=== PATIENT | female | born 1930 | race Caucasian/White ===

== ENCOUNTER 2016-09-07 10:59 | Inpatient (IN) | payer OTHER, BC ==
[~2016-09-07] VITALS: Ht 167.6 cm; Wt 94.3 kg
[~2016-09-07 10:59] MED LIST: ALEVE220 MG PO; AMLODIPINE-BEN1 EAC3 PO; ASCORBIC ACID500 M3 PO; ASPIRIN325 MG PO; BACTRIM,SEPT1 TABLET PO; BENAZEPRIL HCL5 MG PO; Benadryl PO; Coumadin Protocol PO; DAILY MULTIPLE1 EACH PO; FISH OIL 1,2001 EAC3 PO; FLOVENT 11120 INHALA IH; Feosol PO; GLIMEPIRIDE1 MG PO; GLUCOPHAGE XR750 MG PO; GLUCOSAMINE-CH1 EA12 PO; Glucophage PO; HYDROCHLOROTH12.5 M3 PO; HYDROCODON-ACE1 EAC7 PO; IRON325 MG PO; LOTREL 5/201 CAPSULE PO; Lotrel 5/20 PO; NORVASC2.5 MG PO; PEPTO BISMOL262 MG PO; PEPTO-BISM525 MG/15 PO; TYLENOL EXTRA500 MG PO; VITAMIN D31000 UNIT PO; Vicodin,Norco 5/325 PO; celeBREX PO
[2016-09-26] MEDS ORDERED: BACTROBAN NASAL1 G1 BOTH NARES (14:13)
[2016-09-26] MEDS ORDERED: TYLENOL WITH C1 EACH PO (14:17)
[2016-09-26] MEDS ORDERED: TYLENOL EXTRA500 MG PO (14:17)
[2016-09-26] MEDS ORDERED: TOPROL XL50 MG PO (14:19)
[2016-09-26] MEDS ORDERED: CORTIZONE-1028 GM TP (14:19)
[2016-09-27 10:57] VITALS: BP 146/71
[2016-09-27 11:37] LABS: POINT-OF-CARE METER ID UU13113694
[2016-09-27 12:20] LABS: METH RESISTANT S AUREUS PCR NEGATIVE (NEGATIVE)
[2016-09-27 12:27] LABS: PROBE CHECK PASS; SPECIMEN PROCESSING CONTROL PASS
[2016-09-27 16:49] VITALS: BP 147/85
[2016-09-27 16:50] LABS: POINT-OF-CARE METER ID UU13113675
[2016-09-27 19:05] VITALS: BP 136/98
[2016-09-27 23:05] VITALS: BP 149/72
[2016-09-28 02:35] VITALS: BP 131/75
[2016-09-28 05:28] LABS: MCV 93.8 FL (83-99)
[2016-09-28 08:52] VITALS: BP 137/69
[2016-09-28 15:53] VITALS: BP 152/83
[2016-09-28 19:47] VITALS: BP 145/83
[2016-09-29 00:27] VITALS: BP 137/79
[2016-09-29 08:22] LABS: HEMATOCRIT 31.2 % (36.0-46.0); MCV 94.5 FL (83-99)
[2016-09-29 08:38] VITALS: BP 135/78
[2016-09-29 12:41] VITALS: BP 131/77
[2016-09-29 16:17] VITALS: BP 171/74
[2016-09-30 00:42] VITALS: BP 158/73
[2016-09-30 23:42] VITALS: BP 129/60
[2016-10-01 08:06] VITALS: BP 140/69
[2016-10-01] MEDS ORDERED: ASPIRIN EC325 MG PO (08:25)
[2016-10-01] MEDS ORDERED: OXYCODONE HCL5 MG PO (08:26)
[2016-10-01] MEDS ORDERED: DOCUSATE SODIU100 MG PO (08:26)
== END 2016-10-01 10:05 | DRG 483 ==
LOC: 2SOUTH → ENRESERV 09-26 22:02 → 2SOUTH 09-27 09:46 → 3EAST 09-27 10:16 → 2SOUTH 09-27 11:42 → ENRESERV 09-27 14:51 → 3EAST 09-27 16:38
PROVIDERS: Orthopaedic Surgery
PROC: 0RRJ00Z Replacement of Right Shoulder Joint with Reverse Ball and Socket Synthetic Substitute, Open Approach (ICD-10-PCS; principal; 2016-09-27)
DX: M19.011 Primary osteoarthritis, right shoulder (principal); N18.9 Chronic kidney disease, unspecified; E11.22 Type 2 diabetes mellitus with diabetic chronic kidney disease; I12.9 Hypertensive chronic kidney disease with stage 1 through stage 4 chronic kidney disease, or unspecified chronic kidney disease; E78.5 Hyperlipidemia, unspecified; J45.909 Unspecified asthma, uncomplicated; Z96.612 Presence of left artificial shoulder joint; Z96.643 Presence of artificial hip joint, bilateral; Z96.653 Presence of artificial knee joint, bilateral; Z68.33 Body mass index [BMI] 33.0-33.9, adult
CPT/HCPCS: 71010; 82948; 85014; 85018; 87641; 94010; 94640; 94640 76; 94799; 97530 GP; C1713; J0330; J2250; J2405; J2795; J3010; J3370; J7030; J7050

== ENCOUNTER 2017-03-31 05:08 | Emergency (ER) | payer OTHER, BC ==
[~2017-03-31] VITALS: Ht 170.2 cm; Wt 97.4 kg
[~2017-03-31 05:08] MED LIST changes: +ASPIRIN EC325 MG PO; +BACTROBAN NASAL1 G1 BOTH NARES; +CORTIZONE-1028 GM TP; +DOCUSATE SODIU100 MG PO; +OXYCODONE HCL5 MG PO; +TOPROL XL50 MG PO; +TYLENOL WITH C1 EACH PO
[2017-03-31 07:00] VITALS: BP 123/62
== END 2017-03-31 07:01 | disposition home or self-care (01) ==
LOC: EME → EDBD 05:08 → EME 05:08
DX: S32.501A Unspecified fracture of right pubis, initial encounter for closed fracture (principal); N18.9 Chronic kidney disease, unspecified; E11.9 Type 2 diabetes mellitus without complications; W18.30XA Fall on same level, unspecified, initial encounter; Z87.891 Personal history of nicotine dependence; Z79.84 Long term (current) use of oral hypoglycemic drugs; Z96.651 Presence of right artificial knee joint; Z96.643 Presence of artificial hip joint, bilateral; Z96.612 Presence of left artificial shoulder joint; Z96.611 Presence of right artificial shoulder joint; Z85.9 Personal history of malignant neoplasm, unspecified; Z88.0 Allergy status to penicillin; Z88.8 Allergy status to other drugs, medicaments and biological substances
CPT/HCPCS: 72220; 73502; 80053; 81003; 85025; 99281; 99284

== ENCOUNTER 2017-04-08 15:42 | Inpatient (IN) | payer OTHER, BC ==
[~2017-04-08] VITALS: Ht 170.2 cm; Wt 96.6 kg
[2017-04-08 16:03] LABS: HEMATOCRIT 36.2 % (36.0-46.0); HEMOGLOBIN 11.8 G/DL (11.9-15.5); MCH 30.5 PG (29.0-34.0); MCHC 32.6 G/DL (30.0-36.0); MCV 93.5 FL (83-99); PLATELET COUNT 199 K/uL (156-360); RBC DIS.WIDTH-CV 15.7 % (11.8-14.6); RBC DIS.WIDTH-SD 53.5 % (39-53); RED BLOOD COUNT 3.87 M/uL (3.80-5.20); WHITE BLOOD COUNT 10.8 K/uL (4.1-10.2)
[2017-04-08 16:20] LABS: ALBUMIN 3.8 g/dL (3.2-4.8); CHLORIDE 108 mEq/L (99-109); POTASSIUM 4.1 mEq/L (3.7-5.4); SODIUM 143 mEq/L (136-147)
[2017-04-08 16:22] LABS: GLUCOSE 101 mg/dL (70-99); TOTAL PROTEIN 6.4 g/dL (6.4-8.3)
[2017-04-08 16:24] LABS: TOTAL BILIRUBIN 0.4 mg/dL (0.0-1.0)
[2017-04-08 16:26] LABS: ALKALINE PHOSPHATASE 91 IU/L (3-129); CREATININE 0.9 mg/dL (0.6-1.3); GFR ESTIMATE (CALCULATED) > 59 mL/min/
[2017-04-08 16:27] LABS: AST (GOT) 18 IU/L (2-34); UREA NITROGEN (BUN) 23 mg/dL (9-23)
[2017-04-08 16:29] LABS: ALT (GPT) 19 IU/L (3-49)
[2017-04-08] MEDS ORDERED: CODEINE-GUAIFE120 ML PO (20:04)
[2017-04-08] MEDS ORDERED: PROAIR HFA8.5 GM IH (20:04)
[2017-04-08] MEDS ORDERED: TYLENOL EXTRA500 MG PO (20:06)
[2017-04-08] MEDS ORDERED: KENALOG,ARISTOC80 GM TP (20:07)
[2017-04-08] MEDS ORDERED: LASIX40 MG PO (20:07)
[2017-04-08 21:31] LABS: TROP-I INTERPRETATION NEGATIVE; TROPONIN-I < 0.01 ng/mL (0.0-0.30)
[2017-04-08 23:12] VITALS: BP 143/62
[2017-04-09 03:58] VITALS: BP 151/65
[2017-04-09 05:58] LABS: HEMOGLOBIN 10.7 G/DL (11.9-15.5); RED BLOOD COUNT 3.67 M/uL (3.80-5.20); WHITE BLOOD COUNT 8.9 K/uL (4.1-10.2)
[2017-04-09 05:59] LABS: BASOPHIL (%) 0.8 % (0-1); BASOPHIL COUNT 0.1 K/uL (0-0.1); EOSINOPHIL (%) 4.9 % (0-5); EOSINOPHIL COUNT 0.4 K/uL (0-0.3); HEMATOCRIT 34.2 % (36.0-46.0); IMMATURE GRANULOCYTE (%) 0.3 % (0.0-0.7); LYMPHOCYTE COUNT 1.4 K/uL (1.0-2.8); MCH 29.2 PG (29.0-34.0); MCHC 31.3 G/DL (30.0-36.0); MCV 93.2 FL (83-99); MONOCYTE (%) 7.9 % (3-12); MONOCYTE COUNT 0.7 K/uL (0-0.8); NEUTROPHIL (%) 70.1 % (45-76); NEUTROPHIL COUNT 6.2 K/uL (1.8-6.4); PLATELET COUNT 177 K/uL (156-360); RBC DIS.WIDTH-CV 15.4 % (11.8-14.6); RBC DIS.WIDTH-SD 52.9 % (39-53)
[2017-04-09 06:22] LABS: CHLORIDE 110 MEQ/L (99-109); CREATININE 0.9 MG/DL (0.6-1.3); GFR ESTIMATE (CALCULATED) > 59 mL/min/; POTASSIUM 4.2 MEQ/L (3.7-5.4); SODIUM 145 MEQ/L (136-147); UREA NITROGEN (BUN) 20 mg/dL (9-23)
[2017-04-09 06:36] LABS: GLUCOSE 153 mg/dL (70-99)
[2017-04-09 07:05] VITALS: BP 147/72
[2017-04-09 11:10] VITALS: BP 133/78
[2017-04-09 12:11] LABS: APPEARANCE CLEAR ((CLEAR)); BILIRUBIN NEGATIVE; BLOOD NEGATIVE; COLOR YELLOW ((YELLOW)); GLUCOSE (STRIP) NEGATIVE; KETONES NEGATIVE; LEUKOCYTES SMALL; NITRITE NEGATIVE; PROTEIN (STRIP) NEGATIVE; SPECIFIC GRAVITY 1.016 (1.000-1.030); UROBILINOGEN 0.2 MG/DL (0.2-1.0)
[2017-04-09 12:17] LABS: BACTERIA RARE /HPF; EPITHELIAL CELLS RARE /HPF; HYALINE CASTS 0-5 /LPF; MUCUS TRACE /LPF; RED BLOOD CELLS 0-5 /HPF (0-5)
[2017-04-09 16:24] VITALS: BP 144/67
[2017-04-09 19:23] VITALS: BP 142/72
[2017-04-09 23:18] VITALS: BP 137/63
[2017-04-10 03:03] VITALS: BP 135/79
[2017-04-10 07:36] VITALS: BP 159/64
[2017-04-10 09:47] LABS: HEMATOCRIT 35.4 % (36.0-46.0); HEMOGLOBIN 11.3 G/DL (11.9-15.5); MCH 30.1 PG (29.0-34.0); MCHC 31.9 G/DL (30.0-36.0); MCV 94.1 FL (83-99); PLATELET COUNT 166 K/uL (156-360); RBC DIS.WIDTH-CV 15.7 % (11.8-14.6); RBC DIS.WIDTH-SD 54.1 % (39-53); RED BLOOD COUNT 3.76 M/uL (3.80-5.20); WHITE BLOOD COUNT 11.1 K/uL (4.1-10.2)
[2017-04-10 10:21] LABS: CHLORIDE 103 MEQ/L (99-109); GFR ESTIMATE (CALCULATED) 56 mL/min/; GLUCOSE 174 mg/dL (70-99); POTASSIUM 3.9 MEQ/L (3.7-5.4); SODIUM 139 MEQ/L (136-147); UREA NITROGEN (BUN) 20 mg/dL (9-23)
[2017-04-10 10:47] VITALS: BP 143/67
[2017-04-10 15:40] VITALS: BP 152/67
[2017-04-10 19:05] VITALS: BP 154/64
[2017-04-10 23:25] VITALS: BP 135/58
[2017-04-11 03:19] VITALS: BP 150/71
[2017-04-11 07:22] VITALS: BP 147/65
[2017-04-11] MEDS ORDERED: POLYETHYLENE GL17 GM PO (10:04)
[2017-04-11] MEDS ORDERED: DOXYCYCLINE HY100 M3 PO (10:04)
[2017-04-11] MEDS ORDERED: DOCUSATE SODIU100 MG PO (10:05)
[2017-04-11] MEDS ORDERED: ENDOCET 5-3251 EACH PO (10:05)
[2017-04-11 11:52] VITALS: BP 141/65
== END 2017-04-11 13:30 | DRG 603 ==
LOC: EME 15:42 → EDOF 20:42 → 3EAST 20:42 → ENRESERV 20:45 → 3EAST 22:36
PROVIDERS: Hospitalist; Physician Assistant
DX: L03.115 Cellulitis of right lower limb (principal); S32.591A Other specified fracture of right pubis, initial encounter for closed fracture; W18.30XA Fall on same level, unspecified, initial encounter; Y92.030 Kitchen in apartment as the place of occurrence of the external cause; I87.2 Venous insufficiency (chronic) (peripheral); R55 Syncope and collapse; T44.6X5A Adverse effect of alpha-adrenoreceptor antagonists, initial encounter; I13.0 Hypertensive heart and chronic kidney disease with heart failure and stage 1 through stage 4 chronic kidney disease, or unspecified chronic kidney disease; I50.9 Heart failure, unspecified; N18.9 Chronic kidney disease, unspecified; E11.22 Type 2 diabetes mellitus with diabetic chronic kidney disease; D64.9 Anemia, unspecified; R26.2 Difficulty in walking, not elsewhere classified; I89.0 Lymphedema, not elsewhere classified; E78.5 Hyperlipidemia, unspecified; J45.909 Unspecified asthma, uncomplicated; E66.9 Obesity, unspecified; Z68.33 Body mass index [BMI] 33.0-33.9, adult; Z96.643 Presence of artificial hip joint, bilateral; Z87.891 Personal history of nicotine dependence; Z88.0 Allergy status to penicillin; Z60.2 Problems related to living alone
CPT/HCPCS: 70450; 71046; 72192; 80048; 80053; 81003; 82948; 83605; 83880; 84484; 85025; 85027; 87040; 93005; 93970; 94640; 94640 76; 99202; 99281; 99285; J0690; J1644

== ENCOUNTER 2017-09-08 07:59 | Emergency (ER) | payer OTHER, BC ==
[~2017-09-08] VITALS: Ht 167.6 cm; Wt 91.0 kg
[~2017-09-08 07:59] MED LIST changes: +CODEINE-GUAIFE120 ML PO; +DOXYCYCLINE HY100 M3 PO; +ENDOCET 5-3251 EACH PO; +KENALOG,ARISTOC80 GM TP; +LASIX40 MG PO; +POLYETHYLENE GL17 GM PO; +PROAIR HFA8.5 GM IH
[2017-09-08 09:28] LABS: BASOPHIL COUNT 0.1 K/uL (0-0.1); EOSINOPHIL (%) 15.8 % (0-5); EOSINOPHIL COUNT 1.3 K/uL (0-0.3); HEMOGLOBIN 11.5 G/DL (11.9-15.5); IMMATURE GRANULOCYTE (%) 0.4 % (0.0-0.7); LYMPHOCYTE (%) 21.6 % (15-42); LYMPHOCYTE COUNT 1.7 K/uL (1.0-2.8); MCH 30.4 PG (29.0-34.0); MCHC 32.9 G/DL (30.0-36.0); MCV 92.6 FL (83-99); MONOCYTE (%) 7.4 % (3-12); MONOCYTE COUNT 0.6 K/uL (0-0.8); NEUTROPHIL (%) 53.8 % (45-76); NEUTROPHIL COUNT 4.3 K/uL (1.8-6.4); PLATELET COUNT 195 K/uL (156-360); RBC DIS.WIDTH-CV 14.7 % (11.8-14.6); RBC DIS.WIDTH-SD 49.2 % (39-53); RED BLOOD COUNT 3.78 M/uL (3.80-5.20); WHITE BLOOD COUNT 7.9 K/uL (4.1-10.2)
[2017-09-08 09:38] LABS: ALBUMIN 3.7 g/dL (3.2-4.8); CHLORIDE 110 mEq/L (99-109); POTASSIUM 4.3 mEq/L (3.7-5.4); SODIUM 144 mEq/L (136-147)
[2017-09-08 09:40] LABS: GLUCOSE 117 mg/dL (70-99)
[2017-09-08 09:41] LABS: TOTAL PROTEIN 6.7 g/dL (6.4-8.3)
[2017-09-08 09:42] LABS: TOTAL BILIRUBIN 0.5 mg/dL (0.0-1.0)
[2017-09-08 09:44] LABS: ALKALINE PHOSPHATASE 91 IU/L (3-129); GFR ESTIMATE (CALCULATED) 56 mL/min/
[2017-09-08 09:45] LABS: UREA NITROGEN (BUN) 19 mg/dL (9-23)
[2017-09-08 09:46] LABS: AST (GOT) 18 IU/L (2-34); DIRECT BILIRUBIN 0.2 mg/dL (0.0-0.3)
[2017-09-08 09:47] LABS: ALT (GPT) 14 IU/L (3-49)
[2017-09-08] MEDS ORDERED: LIDODERM 5% P1 PATCH TD (11:14)
[2017-09-08] MEDS ORDERED: IBUPROFEN600 MG PO (11:14)
[2017-09-08 12:31] VITALS: BP 144/85
== END 2017-09-08 12:31 | disposition home or self-care (01) ==
LOC: EME 07:59
PROVIDERS: Emergency Medicine
DX: M75.22 Bicipital tendinitis, left shoulder (principal); Z96.612 Presence of left artificial shoulder joint; Z96.611 Presence of right artificial shoulder joint; Z96.649 Presence of unspecified artificial hip joint; I12.9 Hypertensive chronic kidney disease with stage 1 through stage 4 chronic kidney disease, or unspecified chronic kidney disease; E11.22 Type 2 diabetes mellitus with diabetic chronic kidney disease; N18.9 Chronic kidney disease, unspecified; J45.909 Unspecified asthma, uncomplicated; Z79.84 Long term (current) use of oral hypoglycemic drugs; Z88.0 Allergy status to penicillin; Z87.891 Personal history of nicotine dependence
CPT/HCPCS: 73030; 80048; 80076; 85025; 94640; 99281; 99284